=== PATIENT | female | born 1960 | race African-American/Black ===

== ENCOUNTER 2020-03-27 21:09 | Inpatient (IN) | payer OTHER ==
[~2020-03-27] VITALS: Ht 157.5 cm; Wt 71.2 kg
[2020-03-27] MEDS ORDERED: ONDANSETRON HCL 4MG/2ML INJ IV STA (21:36)
[2020-03-27] MEDS ORDERED: SODIUM CHLORIDE 0.9% 1,000 ML IV ONE (21:45)
[2020-03-27] MEDS ORDERED: LEVETIRACETAM 1000MG PREMIX 100 ML IV ONE (21:45)
[2020-03-27 23:46] LABS: BASOPHILS % 0.8 % (0.0-2.0); EOSINOPHILS % 0.1 % (0.0-5.0); LYMPHOCYTES % 14.4 % (20.0-50.0); MEAN CORPUSCULAR HEMOGLOBIN 32.7 pg (28.0-32.0); MEAN CORPUSCULAR VOLUME 93.7 fL (81.0-99.0); MEAN PLATELET VOLUME 8.5 fl (7.4-10.4); MONOCYTES % 4.2 % (2.0-8.0); NEUTROPHILS % 80.5 % (40.0-76.0); PLATELET 160 x1000/uL (130-400); RED BLOOD CELL COUNT 4.26 mill/uL (4.2-5.4); RED CELL DISTRIBUTION WIDTH 12.9 % (11.6-14.6)
[2020-03-27 23:56] LABS: CHLORIDE 88 mEq/L (98-107)
[2020-03-27 23:58] LABS: ETHANOL BLOOD < 10 mg/dL
[2020-03-28] VITALS (7 sets, daily range): BP systolic 121–139; BP diastolic 62–91
[2020-03-28] MEDS ORDERED: CLONIDINE 0.2MG TABLET PO ONE
[2020-03-28 00:15] LABS: CLARITY URINE CLEAR (CLEAR); COLOR URINE YELLOW (YELLOW); KETONES URINE 1+ (NEGATIVE); LEUKOCYTE ESTERASE URINE NEGATIVE (NEGATIVE); NITRITE URINE NEGATIVE (NEGATIVE); OCCULT BLOOD URINE 1+ (NEGATIVE); PROTEIN URINE 2+ (NEGATIVE); SPECIFIC GRAVITY URINE 1.021 (1.005-1.030)
[2020-03-28] MEDS ORDERED: POTASSIUM CHLORIDE INJ 40 MEQ in DEXT 5% WATER 250 ML IV ONE (00:30)
[2020-03-28] MEDS ORDERED: MAGNESIUM 2 G PREMIX 50 ML IV ONE (01:15)
[2020-03-28 01:26] LABS: *AMPHETAMINES SCREEN URINE NEGATIVE (NEGATIVE); *BARBITURATES SCREEN URINE NEGATIVE (NEGATIVE); *BENZODIAZEPINES SCREEN URINE NEGATIVE (NEGATIVE); *COCAINE SCREEN URINE NEGATIVE (NEGATIVE); PHENCYCLIDINE URINE SCREEN NEGATIVE (NEGATIVE)
[2020-03-28 01:35] LABS: OPIATES URINE SCREEN NEGATIVE (NEGATIVE)
[2020-03-28 01:40] LABS: CANNABINOID URINE SCREEN PRESUMTIVE POSITIVE (NEGATIVE); METHADONE URINE SCREEN NEGATIVE (NEGATIVE)
[2020-03-28] MEDS ORDERED: POTASSIUM CHLORIDE 20MEQ TABLET SR PO NR (02:00)
[2020-03-28] MEDS ORDERED: ONDANSETRON HCL 4MG/2ML INJ IV PRN (02:00)
[2020-03-28] MEDS ORDERED: TRAZODONE HCL 50MG TABLET PO PRN (02:00)
[2020-03-28] MEDS ORDERED: MAGNESIUM 2 G PREMIX 50 ML IV NR (02:12)
[2020-03-28] MEDS ORDERED: DEXTROSE 50% WATER 50ML SYRINGE IV PRN (02:15)
[2020-03-28] MEDS ORDERED: SODIUM CHL 0.9% + KCL 20MEQ/L 1,000 ML IV SCH (02:30)
[2020-03-28] MEDS ORDERED: LEVETIRACETAM 500MG PREMIX 100 ML IV SCH (03:00)
[2020-03-28] MEDS: ACETAMINOPHEN 325MG TABLET PO PRN ×3 (04:43→21:44)
[2020-03-28] MEDS ORDERED: INFLUENZA VACCINE 05/PF 0.5 ML VIAL IM ONE (05:45)
[2020-03-28] MEDS ORDERED: PNEUMOCOCCAL 23-VAL P-SAC VAC 0.5 ML IM ONE (05:45)
[2020-03-28] MEDS ORDERED: KCL 10MEQ/50ML PREMIX 50 ML IV SCH (06:00)
[2020-03-28] MEDS ORDERED: INSULIN LISPRO 100 UNITS/ML SUBCUT SCH (08:20)
[2020-03-28] MEDS: LEVETIRACETAM 500MG PREMIX 100 ML IV SCH ×2 (08:46→21:45)
[2020-03-28] MEDS: HEPARIN 5000 UNITS/ML VIAL SUBCUT SCH ×2 (08:47→23:14)
[2020-03-28] MEDS ORDERED: BLOOD SUGAR DIAGNOSTIC STRIP TEST SCH (09:00)
[2020-03-28 09:29] LABS: BASOPHILS % 0.4 % (0.0-2.0); HEMOGLOBIN. 12.8 g/dL (12.0-16.0); LYMPHOCYTES % 11.2 % (20.0-50.0); MEAN CORPUSCULAR HEMOGLOBIN 31.9 pg (28.0-32.0); MEAN CORPUSCULAR VOLUME 94.8 fL (81.0-99.0); MEAN PLATELET VOLUME 8.6 fl (7.4-10.4); MONOCYTES % 8.2 % (2.0-8.0); NEUTROPHILS % 80.2 % (40.0-76.0); PLATELET 132 x1000/uL (130-400); RED BLOOD CELL COUNT 4.01 mill/uL (4.2-5.4); RED CELL DISTRIBUTION WIDTH 12.9 % (11.6-14.6)
[2020-03-28 09:54] LABS: CHLORIDE 101 mEq/L (98-107)
[2020-03-28] MEDS ORDERED: INSULIN GLARGINE UD 100 UNITS/ML SYR SUBCUT SCH (10:00)
[2020-03-28] MEDS ORDERED: POTASSIUM CHLORIDE 20MEQ/PACKET PO SCH (11:30)
[2020-03-28] MEDS ORDERED: MAGNESIUM 4 G PREMIX 100 ML IV SCH (13:00)
[2020-03-28] MEDS ORDERED: PIPERACILLIN/TAZOBACTAM 3.375 G/VIAL IV SCH (14:00)
[2020-03-28] MEDS ORDERED: VANCOMYCIN 1 G PREMIX 200 ML IV SCH (15:00)
[2020-03-28] MEDS: PIPERACILLIN/TAZOBACTAM 3.375 G in DEXT 5% WATER 100 ML IV SCH ×2 (15:35→21:45)
[2020-03-28] MEDS: VANCOMYCIN 1 G PREMIX 200 ML IV SCH (21:45)
[2020-03-29] VITALS: BP 142/88
[2020-03-29] MEDS: PIPERACILLIN/TAZOBACTAM 3.375 G in DEXT 5% WATER 100 ML IV SCH ×2 (03:13→09:37)
[2020-03-29 04:00] VITALS: BP 126/72
[2020-03-29 04:28] LABS: BASOPHILS % 0.5 % (0.0-2.0); EOSINOPHILS % 0.1 % (0.0-5.0); HEMATOCRIT. 38.8 % (36.0-48.0); HEMOGLOBIN. 13.1 g/dL (12.0-16.0); LYMPHOCYTES % 12.8 % (20.0-50.0); MEAN CORPUSCULAR HEMOGLOBIN 31.7 pg (28.0-32.0); MEAN CORPUSCULAR VOLUME 94.1 fL (81.0-99.0); MEAN PLATELET VOLUME 8.8 fl (7.4-10.4); MONOCYTES % 5.9 % (2.0-8.0); NEUTROPHILS % 80.7 % (40.0-76.0); PLATELET 112 x1000/uL (130-400); RED BLOOD CELL COUNT 4.12 mill/uL (4.2-5.4); RED CELL DISTRIBUTION WIDTH 12.8 % (11.6-14.6)
[2020-03-29 04:41] LABS: CHLORIDE 103 mEq/L (98-107)
[2020-03-29 08:00] VITALS: BP 132/75
[2020-03-29] MEDS: VANCOMYCIN 1 G PREMIX 200 ML IV SCH (08:24)
[2020-03-29] MEDS: LEVETIRACETAM 500MG PREMIX 100 ML IV SCH (09:37)
[2020-03-29] MEDS ORDERED: POTASSIUM CHLORIDE 20MEQ TABLET SR PO SCH ×2 (10:00→10:30)
[2020-03-29] MEDS: HEPARIN 5000 UNITS/ML VIAL SUBCUT SCH (10:31)
== END 2020-03-29 13:20 | disposition short-term general hospital (02) | DRG 720 ==
LOC: ER 21:09 → ENRESERV 03-28 03:27 → 5WST 03-28 04:09
PROVIDERS: ADMIT Internal Medicine; ATTEND Internal Medicine
DX: A41.9 Sepsis, unspecified organism (principal); F12.10 Cannabis abuse, uncomplicated; E44.0 Moderate protein-calorie malnutrition; E83.42 Hypomagnesemia; R73.9 Hyperglycemia, unspecified; G40.409 Other generalized epilepsy and epileptic syndromes, not intractable, without status epilepticus; E87.6 Hypokalemia; E87.1 Hypo-osmolality and hyponatremia; R74.01 Elevation of levels of liver transaminase levels; E87.8 Other disorders of electrolyte and fluid balance, not elsewhere classified; R31.9 Hematuria, unspecified; I10 Essential (primary) hypertension; R80.9 Proteinuria, unspecified; R81 Glycosuria; F17.200 Nicotine dependence, unspecified, uncomplicated; Z86.73 Personal history of transient ischemic attack (TIA), and cerebral infarction without residual deficits; Z82.49 Family history of ischemic heart disease and other diseases of the circulatory system; Z91.14 Patient's other noncompliance with medication regimen; Z68.28 Body mass index [BMI] 28.0-28.9, adult; Z71.6 Tobacco abuse counseling; Z98.891 History of uterine scar from previous surgery
CPT/HCPCS: 36415; 71045; 80053; 80061; 80305; 80320; 81003; 83036; 83735; 83880; 85025; 93005; 93306; 99291; J1644; J1953; J2405; J2543; J3370; J3475; J3480; J7030; J7060; G0480

== ENCOUNTER 2020-08-05 01:38 | Inpatient (IN) | payer OTHER ==
[~2020-08-05] VITALS: Ht 156.2 cm; Wt 67.7 kg
[2020-08-05] MEDS ORDERED: ONDANSETRON HCL 4MG/2ML INJ IV STA (02:22)
[2020-08-05] MEDS ORDERED: SODIUM CHLORIDE 0.9% 1,000 ML IV ONE (02:30)
[2020-08-05] MEDS ORDERED: LEVETIRACETAM 500MG PREMIX 100 ML IV ONE (02:30)
[2020-08-05 02:58] LABS: BASOPHILS % 0.4 % (0.0-2.0); CHLORIDE 103 mEq/L (98-107); EOSINOPHILS % 0.7 % (0.0-5.0); HEMATOCRIT. 40.4 % (36.0-48.0); HEMOGLOBIN. 13.3 g/dL (12.0-16.0); LYMPHOCYTES % 59.7 % (20.0-50.0); MEAN CORPUSCULAR HEMOGLOBIN 31.6 pg (28.0-32.0); MEAN PLATELET VOLUME 7.9 fl (7.4-10.4); MONOCYTES % 9.2 % (2.0-8.0); PLATELET 270 x1000/uL (130-400); RED BLOOD CELL COUNT 4.21 mill/uL (4.2-5.4); RED CELL DISTRIBUTION WIDTH 17.4 % (11.6-14.6)
[2020-08-05 03:02] LABS: ETHANOL BLOOD 145 mg/dL
[2020-08-05 03:05] LABS: METHADONE URINE SCREEN NEGATIVE (NEGATIVE); PHENCYCLIDINE URINE SCREEN NEGATIVE (NEGATIVE)
[2020-08-05 03:06] LABS: *AMPHETAMINES SCREEN URINE NEGATIVE (NEGATIVE); *BARBITURATES SCREEN URINE NEGATIVE (NEGATIVE); *BENZODIAZEPINES SCREEN URINE NEGATIVE (NEGATIVE); *COCAINE SCREEN URINE NEGATIVE (NEGATIVE); CANNABINOID URINE SCREEN PRESUMTIVE POSITIVE (NEGATIVE); OPIATES URINE SCREEN NEGATIVE (NEGATIVE)
[2020-08-05] MEDS ORDERED: MIDAZOLAM HCL 2 MG/2 ML VIAL IV ONE (03:45)
[2020-08-05] MEDS ORDERED: DEXTROSE 50% WATER 50ML SYRINGE IV PRN (08:15)
[2020-08-05] MEDS ORDERED: LORAZEPAM 2MG/ML CPJ IV PRN (08:15)
[2020-08-05] MEDS ORDERED: ONDANSETRON HCL 4MG/2ML INJ IV PRN (08:15)
[2020-08-05] MEDS: INSULIN LISPRO 100 UNITS/ML SUBCUT SCH ×4 (08:20→21:18)
[2020-08-05 08:30] VITALS: BP 159/100
[2020-08-05] MEDS: BLOOD SUGAR DIAGNOSTIC STRIP TEST SCH ×4 (08:45→21:05)
[2020-08-05 09:20] VITALS: BP 159/100
[2020-08-05] MEDS: LEVETIRACETAM 500MG TABLET PO SCH ×2 (10:10→21:15)
[2020-08-05] MEDS: THIAMINE HCL 100MG TABLET PO SCH (10:13)
[2020-08-05 12:34] VITALS: BP 147/81
[2020-08-05] MEDS ORDERED: AMLO5TAB4 PO (13:06)
[2020-08-05] MEDS ORDERED: CHOL400D7 PO (13:06)
[2020-08-05] MEDS ORDERED: KEPP500 PO (13:06)
[2020-08-05] MEDS: AMLODIPINE 10MG TABLET PO SCH (13:39)
[2020-08-05] MEDS: CHLORDIAZEPOXIDE 25MG CAPSULE PO SCH ×2 (13:39→21:15)
[2020-08-05 16:32] VITALS: BP 156/92
[2020-08-05 19:41] LABS: CLARITY URINE CLEAR (CLEAR); COLOR URINE YELLOW (YELLOW); KETONES URINE NEGATIVE (NEGATIVE); LEUKOCYTE ESTERASE URINE TRACE (NEGATIVE); NITRITE URINE NEGATIVE (NEGATIVE); OCCULT BLOOD URINE NEGATIVE (NEGATIVE); PH URINE 6.5 (4.5-8.0); PROTEIN URINE NEGATIVE (NEGATIVE); SPECIFIC GRAVITY URINE 1.012 (1.005-1.030); UROBILINOGEN URINE 0.2 E.U./dL (0.2-1.0)
[2020-08-05 20:00] VITALS: BP 139/91
[2020-08-06] VITALS: BP 112/76
[2020-08-06 04:00] VITALS: BP 149/91
[2020-08-06] MEDS: BLOOD SUGAR DIAGNOSTIC STRIP TEST SCH ×2 (06:25→12:28)
[2020-08-06] MEDS: CHLORDIAZEPOXIDE 25MG CAPSULE PO SCH ×2 (06:25→15:04)
[2020-08-06] MEDS: INSULIN LISPRO 100 UNITS/ML SUBCUT SCH ×2 (07:33→12:28)
[2020-08-06 08:00] VITALS: BP 135/85
[2020-08-06] MEDS: THIAMINE HCL 100MG TABLET PO SCH (08:57)
[2020-08-06] MEDS: LEVETIRACETAM 500MG TABLET PO SCH (08:57)
[2020-08-06] MEDS: AMLODIPINE 10MG TABLET PO SCH (08:57)
[2020-08-06 12:00] VITALS: BP 134/73
[2020-08-06] MEDS ORDERED: THIA100T72 PO (13:04)
[2020-08-06] MEDS ORDERED: AMLO10TA80 MT (13:04)
[2020-08-06] MEDS ORDERED: KEPP500 PO (13:04)
[2020-08-06 16:00] VITALS: BP 135/90
[2020-08-06 16:23] VITALS: BP 131/90
== END 2020-08-06 18:32 | disposition home or self-care (01) | DRG 52 ==
LOC: ER 01:38 → 6WST 05:19 → ENRESERV 07:45
PROVIDERS: ADMIT Internal Medicine; ATTEND Internal Medicine
DX: G93.41 Metabolic encephalopathy (principal); G40.909 Epilepsy, unspecified, not intractable, without status epilepticus; F10.129 Alcohol abuse with intoxication, unspecified; F12.90 Cannabis use, unspecified, uncomplicated; I16.0 Hypertensive urgency; Y90.6 Blood alcohol level of 120-199 mg/100 ml; I10 Essential (primary) hypertension; Z86.73 Personal history of transient ischemic attack (TIA), and cerebral infarction without residual deficits; Z71.41 Alcohol abuse counseling and surveillance of alcoholic
CPT/HCPCS: 36415; 71045; 80053; 80305; 80320; 81003; 82962; 83036; 84484; 85025; 93005; 99291; J1815; J1953; J2250; J2405; J7030; G0480

== ENCOUNTER 2021-05-24 09:21 | Inpatient (IN) | payer OTHER ==
[~2021-05-24] VITALS: Ht 170.2 cm; Wt 62.1 kg
[~2021-05-24 09:21] MED LIST: AMLO10TA80 MT; AMLO5TAB4 PO; CHOL400D7 PO; KEPP500 PO; THIA100T72 PO
[2021-05-24 11:32] LABS: HEMATOCRIT. 37.9 % (36.0-48.0); HEMOGLOBIN. 12.5 g/dL (12.0-16.0); MEAN CORPUSCULAR HEMOGLOBIN 32.7 pg (28.0-32.0); MEAN CORPUSCULAR VOLUME 99.1 fL (81.0-99.0); MEAN PLATELET VOLUME 7.9 fl (7.4-10.4); PLATELET 105 x1000/uL (130-400); RED BLOOD CELL COUNT 3.82 mill/uL (4.2-5.4); RED CELL DISTRIBUTION WIDTH 18.9 % (11.6-14.6)
[2021-05-24 11:39] LABS: CHLORIDE 104 mEq/L (98-107)
[2021-05-24 11:42] LABS: ETHANOL BLOOD 128 mg/dL
[2021-05-24] MEDS ORDERED: LEVETIRACETAM 1000MG PREMIX 100 ML IV ONE (12:15)
[2021-05-24 12:23] LABS: PLATELET ESTIMATE DECREASED
[2021-05-24] MEDS ORDERED: LORAZEPAM 2MG/ML CPJ IV ONE (14:00)
[2021-05-24] MEDS ORDERED: CHLORDIAZEPOXIDE 25MG CAPSULE PO ONE (14:00)
[2021-05-24 14:17] LABS: CLARITY URINE CLEAR (CLEAR); COLOR URINE YELLOW (YELLOW); KETONES URINE NEGATIVE (NEGATIVE); LEUKOCYTE ESTERASE URINE NEGATIVE (NEGATIVE); NITRITE URINE NEGATIVE (NEGATIVE); OCCULT BLOOD URINE 2+ (NEGATIVE); PROTEIN URINE NEGATIVE (NEGATIVE); SPECIFIC GRAVITY URINE 1.016 (1.005-1.030)
[2021-05-24 15:09] LABS: METHADONE URINE SCREEN NEGATIVE (NEGATIVE); OPIATES URINE SCREEN NEGATIVE (NEGATIVE)
[2021-05-24 15:10] LABS: *AMPHETAMINES SCREEN URINE NEGATIVE (NEGATIVE); *BARBITURATES SCREEN URINE NEGATIVE (NEGATIVE); *BENZODIAZEPINES SCREEN URINE NEGATIVE (NEGATIVE); *COCAINE SCREEN URINE NEGATIVE (NEGATIVE); CANNABINOID URINE SCREEN PRESUMTIVE POSITIVE (NEGATIVE); PHENCYCLIDINE URINE SCREEN NEGATIVE (NEGATIVE)
[2021-05-24] MEDS ORDERED: LORAZEPAM 2MG/ML CPJ IV NR (17:00)
[2021-05-24 20:00] VITALS: BP 134/89
[2021-05-24 22:00] VITALS: BP 134/89
[2021-05-24] MEDS ORDERED: LORAZEPAM 2MG/ML CPJ IV PRN (22:30)
[2021-05-24] MEDS ORDERED: POTASSIUM CHLORIDE 20MEQ TABLET SR PO NR (22:45)
[2021-05-25] VITALS: BP 148/95
[2021-05-25 04:00] VITALS: BP 123/85
[2021-05-25 06:26] LABS: CHLORIDE 105 mEq/L (98-107)
[2021-05-25 06:48] LABS: BASOPHILS % 0.3 % (0.0-2.0); EOSINOPHILS % 0.1 % (0.0-5.0); HEMATOCRIT. 35.4 % (36.0-48.0); HEMOGLOBIN. 11.7 g/dL (12.0-16.0); MEAN CORPUSCULAR HEMOGLOBIN 32.9 pg (28.0-32.0); MEAN CORPUSCULAR VOLUME 99.8 fL (81.0-99.0); MEAN PLATELET VOLUME 9.1 fl (7.4-10.4); MONOCYTES % 9.5 % (2.0-8.0); NEUTROPHILS % 65.1 % (40.0-76.0); PLATELET 105 x1000/uL (130-400); RED BLOOD CELL COUNT 3.54 mill/uL (4.2-5.4); RED CELL DISTRIBUTION WIDTH 18.8 % (11.6-14.6)
[2021-05-25] MEDS ORDERED: POTASSIUM CHLORIDE INJ 60 MEQ in DEXT 5% WATER 250 ML IV ONE (07:00)
[2021-05-25 08:00] VITALS: BP 138/86
[2021-05-25] MEDS: KCL 20MEQ/100ML PREMIX 100 ML IV SCH ×3 (09:19→15:32)
[2021-05-25] MEDS: ACETAMINOPHEN 325MG TABLET PO PRN ×2 (09:20→15:32)
[2021-05-25] MEDS: THIAMINE HCL 100MG TABLET PO SCH (09:20)
[2021-05-25] MEDS: AMLODIPINE 10MG TABLET PO SCH (09:20)
[2021-05-25] MEDS: LEVETIRACETAM 500MG/5ML CUP PO SCH ×2 (09:20→20:59)
[2021-05-25 12:00] VITALS: BP 139/82
[2021-05-25 16:00] VITALS: BP 127/81
[2021-05-25 20:00] VITALS: BP 129/75
[2021-05-25 20:12] LABS: PHOSPHORUS 2.5 mg/dL (2.5-4.9)
[2021-05-25] MEDS ORDERED: CEFTRIAXONE 1,000 MG in DEXTROSE 5% WATER 50 ML IV SCH (21:00)
[2021-05-25] MEDS ORDERED: MAGNESIUM 2 G PREMIX 50 ML IV ONE (21:30)
[2021-05-26] VITALS: BP 135/81
[2021-05-26 04:00] VITALS: BP 123/85
[2021-05-26 06:26] LABS: CHLORIDE 104 mEq/L (98-107)
[2021-05-26 06:30] LABS: HEMATOCRIT. 32.7 % (36.0-48.0); HEMOGLOBIN. 11.2 g/dL (12.0-16.0); MEAN CORPUSCULAR HEMOGLOBIN 34.3 pg (28.0-32.0); MEAN CORPUSCULAR VOLUME 99.8 fL (81.0-99.0); PLATELET 98 x1000/uL (130-400); RED BLOOD CELL COUNT 3.28 mill/uL (4.2-5.4); RED CELL DISTRIBUTION WIDTH 18.8 % (11.6-14.6)
[2021-05-26] MEDS: ACETAMINOPHEN 325MG TABLET PO PRN (06:48)
[2021-05-26 08:00] VITALS: BP 138/76
[2021-05-26] MEDS ORDERED: POTASSIUM CHLORIDE 20MEQ TABLET SR PO SCH (08:45)
[2021-05-26] MEDS ORDERED: MAGNESIUM 2 G PREMIX 50 ML IV NR (10:00)
[2021-05-26] MEDS: THIAMINE HCL 100MG TABLET PO SCH (10:01)
[2021-05-26] MEDS: LEVETIRACETAM 500MG/5ML CUP PO SCH (10:01)
[2021-05-26] MEDS: AMLODIPINE 10MG TABLET PO SCH (10:02)
[2021-05-26 12:00] VITALS: BP 140/72
[2021-05-26] MEDS ORDERED: KEPP500 PO (14:27)
[2021-05-26] MEDS ORDERED: THIA100T72 PO (14:27)
[2021-05-26] MEDS ORDERED: AMLO10TA80 MT (14:27)
[2021-05-26 15:11] LABS: NUCLEATED RED BLOOD CELLS 1 /100 WBC; PLATELET ESTIMATE DECREASED
[2021-05-26 16:00] VITALS: BP 157/97
[2021-05-26] MEDS ORDERED: LEVO500T89 MT (18:35)
[2021-05-26 18:39] VITALS: BP 145/76
[2021-05-26] MEDS ORDERED: IOHEXOL-300 100 ML BOTTLE ONE (18:58)
== END 2021-05-26 19:48 | disposition home or self-care (01) | DRG 720 ==
LOC: ER 09:27 → 8WST 14:19 → ENRESERV 20:26 → 8WST 05-25 08:08
PROVIDERS: ADMIT Internal Medicine; ATTEND Internal Medicine
PROC: 4A10X4Z Monitoring of Central Nervous Electrical Activity, External Approach (ICD-10-PCS; principal; 2021-05-26)
DX: A41.9 Sepsis, unspecified organism (principal); G92.8 Other toxic encephalopathy; D69.6 Thrombocytopenia, unspecified; E44.1 Mild protein-calorie malnutrition; I11.9 Hypertensive heart disease without heart failure; G40.909 Epilepsy, unspecified, not intractable, without status epilepticus; F17.210 Nicotine dependence, cigarettes, uncomplicated; Y90.6 Blood alcohol level of 120-199 mg/100 ml; F12.10 Cannabis abuse, uncomplicated; F10.929 Alcohol use, unspecified with intoxication, unspecified; K52.9 Noninfective gastroenteritis and colitis, unspecified; E87.6 Hypokalemia; D72.819 Decreased white blood cell count, unspecified; R74.01 Elevation of levels of liver transaminase levels; Z59.02 Unsheltered homelessness; Z68.21 Body mass index [BMI] 21.0-21.9, adult; Z79.899 Other long term (current) drug therapy
CPT/HCPCS: 36415; 71045; 74177; 76700; 80048; 80053; 80305; 80320; 81003; 83735; 84100; 85025; 87493; 93005; 97161; 99285; C1893; J0696; J1953; J2060; J3475; J3480; J7040; J7060; Q9967; G0480

== ENCOUNTER 2021-10-05 11:48 | Inpatient (IN) | payer OTHER ==
[~2021-10-05] VITALS: Ht 154.9 cm; Wt 69.6 kg
[~2021-10-05 11:48] MED LIST changes: -AMLO5TAB4 PO; +LEVO500T90 MT
[2021-10-05] MEDS ORDERED: FOLIC ACID 1 MG, THIAMINE HCL 100 MG, MVI, ADULT NO.1 10 ML in DEXTROSE 5% WATER 1,000 ML IV ONE ×8 (13:30→22:30)
[2021-10-05] MEDS ORDERED: SODIUM CHLORIDE 0.9% 1,000 ML IV ONE ×2 (13:30→14:30)
[2021-10-05 14:04] LABS: BASOPHILS % 1.2 % (0.0-2.0); EOSINOPHILS % 0.1 % (0.0-5.0); HEMATOCRIT. 39.5 % (36.0-48.0); HEMOGLOBIN. 13.2 g/dL (12.0-16.0); LYMPHOCYTES % 52.9 % (20.0-50.0); MEAN CORPUSCULAR HEMOGLOBIN 31.1 pg (28.0-32.0); MEAN CORPUSCULAR VOLUME 93.2 fL (81.0-99.0); MEAN PLATELET VOLUME 7.3 fl (7.4-10.4); MONOCYTES % 7.5 % (2.0-8.0); NEUTROPHILS % 38.3 % (40.0-76.0); PLATELET 222 x1000/uL (130-400); RED BLOOD CELL COUNT 4.23 mill/uL (4.2-5.4); RED CELL DISTRIBUTION WIDTH 16.6 % (11.6-14.6)
[2021-10-05 14:07] LABS: CHLORIDE 105 mEq/L (98-107)
[2021-10-05 14:22] LABS: T4 FREE 0.84 ng/dL (0.76-1.46)
[2021-10-05 14:25] LABS: ETHANOL BLOOD 351 mg/dL
[2021-10-05] MEDS ORDERED: VANCOMYCIN 1G PREMIX 200 ML IV ONE (14:30)
[2021-10-05] MEDS ORDERED: CEFTRIAXONE 1 G PREMIX 50 ML IV ONE (14:30)
[2021-10-05 15:30] LABS: CLARITY URINE CLEAR (CLEAR); COLOR URINE YELLOW (YELLOW); KETONES URINE NEGATIVE (NEGATIVE); LEUKOCYTE ESTERASE URINE NEGATIVE (NEGATIVE); NITRITE URINE NEGATIVE (NEGATIVE); OCCULT BLOOD URINE NEGATIVE (NEGATIVE); PH URINE 5.5 (4.5-8.0); PROTEIN URINE 1+ (NEGATIVE); UROBILINOGEN URINE 0.2 E.U./dL (0.2-1.0)
[2021-10-05 15:40] LABS: *AMPHETAMINES SCREEN URINE NEGATIVE (NEGATIVE); *BARBITURATES SCREEN URINE NEGATIVE (NEGATIVE); *BENZODIAZEPINES SCREEN URINE NEGATIVE (NEGATIVE); *COCAINE SCREEN URINE NEGATIVE (NEGATIVE); CANNABINOID URINE SCREEN PRESUMTIVE POSITIVE (NEGATIVE); METHADONE URINE SCREEN NEGATIVE (NEGATIVE); OPIATES URINE SCREEN NEGATIVE (NEGATIVE); PHENCYCLIDINE URINE SCREEN NEGATIVE (NEGATIVE)
[2021-10-05] MEDS ORDERED: ACETAMINOPHEN 325MG TABLET PO ONE (16:45)
[2021-10-05 18:53] VITALS: BP 100/75
[2021-10-05 19:30] VITALS: BP 152/75
[2021-10-05 20:00] VITALS: BP 152/75
[2021-10-05] MEDS ORDERED: ONDANSETRON HCL 4MG/2ML INJ IV PRN (21:00)
[2021-10-05] MEDS ORDERED: ACETAMINOPHEN 325MG TABLET PO PRN (21:00)
[2021-10-05] MEDS ORDERED: LORAZEPAM 2MG/ML CPJ IV PRN (21:00)
[2021-10-05] MEDS: LEVETIRACETAM 500MG TABLET PO SCH (21:43)
[2021-10-06] VITALS: BP 141/70
[2021-10-06 04:00] VITALS: BP 147/90
[2021-10-06 06:16] LABS: BASOPHILS % 0.7 % (0.0-2.0); EOSINOPHILS % 0.3 % (0.0-5.0); HEMATOCRIT. 37.8 % (36.0-48.0); HEMOGLOBIN. 13.1 g/dL (12.0-16.0); LYMPHOCYTES % 37.6 % (20.0-50.0); MEAN CORPUSCULAR HEMOGLOBIN 31.3 pg (28.0-32.0); MEAN CORPUSCULAR VOLUME 90.5 fL (81.0-99.0); MEAN PLATELET VOLUME 7.3 fl (7.4-10.4); MONOCYTES % 12.7 % (2.0-8.0); NEUTROPHILS % 48.7 % (40.0-76.0); PLATELET 183 x1000/uL (130-400); RED BLOOD CELL COUNT 4.17 mill/uL (4.2-5.4); RED CELL DISTRIBUTION WIDTH 16.3 % (11.6-14.6)
[2021-10-06 06:33] LABS: CHLORIDE 95 mEq/L (98-107)
[2021-10-06 08:00] VITALS: BP 159/89
[2021-10-06] MEDS: MULTIVITAMINS,THER W-MINERALS TABLET PO SCH (09:45)
[2021-10-06] MEDS: PANTOPRAZOLE 40MG DR TABLET PO SCH (09:45)
[2021-10-06] MEDS: AMLODIPINE 10MG TABLET PO SCH (09:46)
[2021-10-06] MEDS: LEVETIRACETAM 500MG TABLET PO SCH ×2 (09:46→21:30)
[2021-10-06] MEDS: POTASSIUM CHLORIDE 20MEQ TABLET SR PO SCH ×3 (11:26→18:07)
[2021-10-06 12:00] VITALS: BP 148/89
[2021-10-06] MEDS: CHLORDIAZEPOXIDE 25MG CAPSULE PO SCH ×2 (14:55→21:30)
[2021-10-06 16:00] VITALS: BP 124/77
[2021-10-06 20:00] VITALS: BP 129/79
[2021-10-07] VITALS: BP 107/73
[2021-10-07 04:00] VITALS: BP 103/67
[2021-10-07] MEDS: CHLORDIAZEPOXIDE 25MG CAPSULE PO SCH ×2 (05:50→13:26)
[2021-10-07] MEDS: PANTOPRAZOLE 40MG DR TABLET PO SCH (06:15)
[2021-10-07 07:10] LABS: BASOPHILS % 1.1 % (0.0-2.0); EOSINOPHILS % 0.7 % (0.0-5.0); HEMATOCRIT. 39.3 % (36.0-48.0); HEMOGLOBIN. 13.2 g/dL (12.0-16.0); LYMPHOCYTES % 39.6 % (20.0-50.0); MEAN CORPUSCULAR VOLUME 92.4 fL (81.0-99.0); MEAN PLATELET VOLUME 7.9 fl (7.4-10.4); MONOCYTES % 14.1 % (2.0-8.0); NEUTROPHILS % 44.5 % (40.0-76.0); PLATELET 174 x1000/uL (130-400); RED BLOOD CELL COUNT 4.26 mill/uL (4.2-5.4); RED CELL DISTRIBUTION WIDTH 16.7 % (11.6-14.6)
[2021-10-07 07:37] LABS: CHLORIDE 101 mEq/L (98-107)
[2021-10-07 08:00] VITALS: BP 120/80
[2021-10-07] MEDS: MULTIVITAMINS,THER W-MINERALS TABLET PO SCH (09:33)
[2021-10-07] MEDS: LEVETIRACETAM 500MG TABLET PO SCH (09:33)
[2021-10-07] MEDS: AMLODIPINE 10MG TABLET PO SCH (09:34)
[2021-10-07 12:00] VITALS: BP 123/69
[2021-10-07 14:18] VITALS: BP 123/69
[2021-10-08] MEDS ORDERED: FAMOTIDINE 20MG TABLET PO SCH (09:00)
== END 2021-10-07 15:10 | disposition home or self-care (01) | DRG 425 ==
LOC: ER 11:48 → 7WST 16:56 → EDBEDREQTM 16:59 → EDBEDREQ 16:59 → ENRESERV 17:18
PROVIDERS: ADMIT Internal Medicine; ATTEND Internal Medicine
DX: E87.6 Hypokalemia (principal); E87.2 Acidosis; F10.129 Alcohol abuse with intoxication, unspecified; F12.90 Cannabis use, unspecified, uncomplicated; G40.909 Epilepsy, unspecified, not intractable, without status epilepticus; I10 Essential (primary) hypertension; F10.139 Alcohol abuse with withdrawal, unspecified; Y90.8 Blood alcohol level of 240 mg/100 ml or more; Z86.73 Personal history of transient ischemic attack (TIA), and cerebral infarction without residual deficits; Z79.899 Other long term (current) drug therapy; Z79.2 Long term (current) use of antibiotics; Z71.41 Alcohol abuse counseling and surveillance of alcoholic
CPT/HCPCS: 36415; 71045; 80048; 80053; 80305; 80307; 80320; 80329; 81003; 82140; 83605; 83735; 83880; 84439; 84443; 84484; 85025; 93005; 99291; J0696; J2405; J3370; J3411; J3490; J7030; J7070; G0480

== ENCOUNTER 2021-10-30 17:37 | Inpatient (IN) | payer OTHER ==
[~2021-10-30] VITALS: Ht 154.9 cm; Wt 72.1 kg
[~2021-10-30 17:37] MED LIST changes: -LEVO500T90 MT
[2021-10-30] MEDS ORDERED: SODIUM CHLORIDE 0.9% 1,000 ML IV ONE ×2 (18:15→19:15)
[2021-10-30] MEDS ORDERED: LEVETIRACETAM 1000MG PREMIX 100 ML IV ONE (18:15)
[2021-10-30 18:27] LABS: BASOPHILS % 0.3 % (0.0-2.0); EOSINOPHILS % 0.1 % (0.0-5.0); HEMATOCRIT. 36.4 % (36.0-48.0); HEMOGLOBIN. 11.7 g/dL (12.0-16.0); LYMPHOCYTES % 20.9 % (20.0-50.0); MEAN CORPUSCULAR HEMOGLOBIN 31.4 pg (28.0-32.0); MEAN CORPUSCULAR VOLUME 97.6 fL (81.0-99.0); MEAN PLATELET VOLUME 8.4 fl (7.4-10.4); MONOCYTES % 8.2 % (2.0-8.0); NEUTROPHILS % 70.5 % (40.0-76.0); PLATELET 131 x1000/uL (130-400); RED BLOOD CELL COUNT 3.73 mill/uL (4.2-5.4); RED CELL DISTRIBUTION WIDTH 18.1 % (11.6-14.6)
[2021-10-30 18:30] LABS: CHLORIDE 102 mEq/L (98-107)
[2021-10-30 18:41] LABS: ETHANOL BLOOD < 10 mg/dL
[2021-10-30] MEDS ORDERED: POTASSIUM CHLORIDE INJ 40 MEQ in DEXT 5% WATER 250 ML IV ONE (19:15)
[2021-10-30] MEDS ORDERED: POTASSIUM CHLORIDE 20MEQ/PACKET PO ONE (19:15)
[2021-10-30] MEDS ORDERED: MAGNESIUM 2 G PREMIX 50 ML IV ONE (19:15)
[2021-10-30] MEDS: KCL 20MEQ/100ML X 2 FOR TOTAL KCL 40MEQ/200ML IV SCH ×2 (19:40→21:10)
[2021-10-30 19:48] LABS: CLARITY URINE CLEAR (CLEAR); COLOR URINE YELLOW (YELLOW); KETONES URINE NEGATIVE (NEGATIVE); LEUKOCYTE ESTERASE URINE NEGATIVE (NEGATIVE); NITRITE URINE NEGATIVE (NEGATIVE); OCCULT BLOOD URINE NEGATIVE (NEGATIVE); PH URINE 5.5 (4.5-8.0); PROTEIN URINE NEGATIVE (NEGATIVE); SPECIFIC GRAVITY URINE 1.007 (1.005-1.030); UROBILINOGEN URINE 0.2 E.U./dL (0.2-1.0)
[2021-10-30 20:27] LABS: *AMPHETAMINES SCREEN URINE NEGATIVE (NEGATIVE); *BARBITURATES SCREEN URINE NEGATIVE (NEGATIVE); *BENZODIAZEPINES SCREEN URINE NEGATIVE (NEGATIVE); *COCAINE SCREEN URINE NEGATIVE (NEGATIVE); CANNABINOID URINE SCREEN PRESUMTIVE POSITIVE (NEGATIVE); METHADONE URINE SCREEN NEGATIVE (NEGATIVE); OPIATES URINE SCREEN NEGATIVE (NEGATIVE); PHENCYCLIDINE URINE SCREEN NEGATIVE (NEGATIVE)
[2021-10-31 02:15] VITALS: BP 144/84
[2021-10-31 03:23] VITALS: BP 144/84
[2021-10-31] MEDS ORDERED: NON FORMULARY PATIENT HOME MED XX SCH (04:15)
[2021-10-31] MEDS ORDERED: ZOLPIDEM TARTRATE 5MG TABLET PO PRN (04:15)
[2021-10-31] MEDS ORDERED: LORAZEPAM 2MG/ML CPJ IV PRN (04:15)
[2021-10-31] MEDS ORDERED: NALOXONE HCL 0.4 MG/ML 1ML VIAL IV PRN (04:30)
[2021-10-31] MEDS: HYDROCODONE/ACETAMINOPHEN 10/325MG TABLET PO PRN ×5 (04:48→21:42)
[2021-10-31 07:12] LABS: CHLORIDE 108 mEq/L (98-107)
[2021-10-31 07:14] LABS: BASOPHILS % 0.2 % (0.0-2.0); EOSINOPHILS % 0.3 % (0.0-5.0); HEMOGLOBIN. 9.9 g/dL (12.0-16.0); LYMPHOCYTES % 18.6 % (20.0-50.0); MEAN CORPUSCULAR HEMOGLOBIN 31.9 pg (28.0-32.0); MEAN CORPUSCULAR VOLUME 93.6 fL (81.0-99.0); MEAN PLATELET VOLUME 8.3 fl (7.4-10.4); MONOCYTES % 13.2 % (2.0-8.0); NEUTROPHILS % 67.7 % (40.0-76.0); PLATELET 118 x1000/uL (130-400); RED CELL DISTRIBUTION WIDTH 17.6 % (11.6-14.6)
[2021-10-31] MEDS ORDERED: POTASSIUM CHLORIDE 20MEQ TABLET SR PO NR ×2 (07:30→13:00)
[2021-10-31] MEDS ORDERED: POTASSIUM CHLORIDE INJ 40 MEQ in DEXT 5% WATER 250 ML IV ONE (07:30)
[2021-10-31 08:00] VITALS: BP 112/68
[2021-10-31] MEDS: CHOLECALCIFEROL (VIT D3) 400 UNIT TABLET PO SCH (08:46)
[2021-10-31] MEDS: LEVETIRACETAM 500MG TABLET PO SCH ×2 (08:46→21:42)
[2021-10-31] MEDS: THIAMINE HCL 100MG TABLET PO SCH (08:46)
[2021-10-31] MEDS: AMLODIPINE 10MG TABLET PO SCH (08:47)
[2021-10-31] MEDS ORDERED: KCL 20MEQ/100ML PREMIX 100 ML IV SCH (09:00)
[2021-10-31 09:42] LABS: PHOSPHORUS 2.6 mg/dL (2.5-4.9)
[2021-10-31 11:52] VITALS: BP 109/75
[2021-10-31] MEDS: CHLORDIAZEPOXIDE 25MG CAPSULE PO SCH ×2 (13:51→21:42)
[2021-10-31] MEDS ORDERED: MAGNESIUM 2 G PREMIX 50 ML IV NR (14:00)
[2021-10-31 16:15] VITALS: BP 110/72
[2021-10-31 20:00] VITALS: BP 121/77
[2021-11-01] VITALS: BP 146/95
[2021-11-01 04:00] VITALS: BP 118/86
[2021-11-01] MEDS: CHLORDIAZEPOXIDE 25MG CAPSULE PO SCH ×3 (05:19→22:22)
[2021-11-01] MEDS: HYDROCODONE/ACETAMINOPHEN 10/325MG TABLET PO PRN ×3 (05:20→22:23)
[2021-11-01 08:00] VITALS: BP 122/80
[2021-11-01] MEDS: THIAMINE HCL 100MG TABLET PO SCH (08:46)
[2021-11-01] MEDS: AMLODIPINE 10MG TABLET PO SCH (08:46)
[2021-11-01] MEDS: LEVETIRACETAM 500MG TABLET PO SCH ×2 (08:46→22:23)
[2021-11-01] MEDS: CHOLECALCIFEROL (VIT D3) 400 UNIT TABLET PO SCH (08:46)
[2021-11-01 12:00] VITALS: BP 107/65
[2021-11-01 16:00] VITALS: BP 137/96
[2021-11-01 20:00] VITALS: BP 148/131
[2021-11-02] VITALS: BP 112/72
[2021-11-02 04:00] VITALS: BP 124/80
[2021-11-02] MEDS: HYDROCODONE/ACETAMINOPHEN 10/325MG TABLET PO PRN ×4 (05:41→21:37)
[2021-11-02] MEDS: CHLORDIAZEPOXIDE 25MG CAPSULE PO SCH ×3 (05:41→21:37)
[2021-11-02 08:00] VITALS: BP 122/57
[2021-11-02] MEDS: COLCHICINE 0.6MG TABLET PO SCH (09:32)
[2021-11-02] MEDS: LEVETIRACETAM 500MG TABLET PO SCH ×2 (09:32→21:38)
[2021-11-02] MEDS: AMLODIPINE 10MG TABLET PO SCH (09:33)
[2021-11-02] MEDS: THIAMINE HCL 100MG TABLET PO SCH (09:33)
[2021-11-02] MEDS: CHOLECALCIFEROL (VIT D3) 400 UNIT TABLET PO SCH (09:33)
[2021-11-02 12:00] VITALS: BP 102/62
[2021-11-02 16:00] VITALS: BP 114/60
[2021-11-02 18:45] LABS: CHLORIDE 101 mEq/L (98-107)
[2021-11-02 20:00] VITALS: BP 101/60
[2021-11-03] VITALS: BP 114/67
[2021-11-03 04:00] VITALS: BP 119/70
[2021-11-03] MEDS: CHLORDIAZEPOXIDE 25MG CAPSULE PO SCH ×3 (06:04→20:59)
[2021-11-03] MEDS: HYDROCODONE/ACETAMINOPHEN 10/325MG TABLET PO PRN ×3 (06:04→17:56)
[2021-11-03 08:00] VITALS: BP 116/75
[2021-11-03] MEDS: CHOLECALCIFEROL (VIT D3) 400 UNIT TABLET PO SCH (08:31)
[2021-11-03] MEDS: COLCHICINE 0.6MG TABLET PO SCH (08:31)
[2021-11-03] MEDS: AMLODIPINE 10MG TABLET PO SCH (08:31)
[2021-11-03] MEDS: LEVETIRACETAM 500MG TABLET PO SCH ×2 (08:31→20:59)
[2021-11-03] MEDS: THIAMINE HCL 100MG TABLET PO SCH (08:31)
[2021-11-03 12:00] VITALS: BP 117/69
[2021-11-03 16:00] VITALS: BP 98/59
[2021-11-03 20:00] VITALS: BP 143/91
[2021-11-04] VITALS: BP 105/61
[2021-11-04 04:00] VITALS: BP 129/84
[2021-11-04] MEDS: CHLORDIAZEPOXIDE 25MG CAPSULE PO SCH ×3 (06:03→21:06)
[2021-11-04] MEDS: HYDROCODONE/ACETAMINOPHEN 10/325MG TABLET PO PRN ×3 (06:03→21:06)
[2021-11-04 07:01] LABS: CHLORIDE 103 mEq/L (98-107)
[2021-11-04 07:16] LABS: HEMOGLOBIN. 9.3 g/dL (12.0-16.0); MEAN CORPUSCULAR HEMOGLOBIN 32.2 pg (28.0-32.0); MEAN CORPUSCULAR VOLUME 97.2 fL (81.0-99.0); MEAN PLATELET VOLUME 7.8 fl (7.4-10.4); PLATELET 228 x1000/uL (130-400); RED BLOOD CELL COUNT 2.88 mill/uL (4.2-5.4); RED CELL DISTRIBUTION WIDTH 18.1 % (11.6-14.6)
[2021-11-04 08:00] VITALS: BP 114/59
[2021-11-04] MEDS: COLCHICINE 0.6MG TABLET PO SCH (09:01)
[2021-11-04] MEDS: CHOLECALCIFEROL (VIT D3) 400 UNIT TABLET PO SCH (09:01)
[2021-11-04] MEDS: LEVETIRACETAM 500MG TABLET PO SCH ×2 (09:02→21:06)
[2021-11-04] MEDS: THIAMINE HCL 100MG TABLET PO SCH (09:02)
[2021-11-04] MEDS: AMLODIPINE 10MG TABLET PO SCH (09:12)
[2021-11-04 12:00] VITALS: BP 108/64
[2021-11-04 16:00] VITALS: BP 113/60
[2021-11-04 20:00] VITALS: BP 123/56
[2021-11-05] VITALS: BP 115/62
[2021-11-05 04:00] VITALS: BP 122/68
[2021-11-05] MEDS: CHLORDIAZEPOXIDE 25MG CAPSULE PO SCH ×2 (05:15→13:56)
[2021-11-05] MEDS: HYDROCODONE/ACETAMINOPHEN 10/325MG TABLET PO PRN ×2 (05:23→11:38)
[2021-11-05 07:38] LABS: PLATELET ESTIMATE NORMAL
[2021-11-05 07:52] LABS: HEMATOCRIT. 28.5 % (36.0-48.0); HEMOGLOBIN. 9.2 g/dL (12.0-16.0); MEAN CORPUSCULAR HEMOGLOBIN 31.1 pg (28.0-32.0); MEAN CORPUSCULAR VOLUME 95.9 fL (81.0-99.0); MEAN PLATELET VOLUME 7.5 fl (7.4-10.4); PLATELET 327 x1000/uL (130-400); RED BLOOD CELL COUNT 2.97 mill/uL (4.2-5.4); RED CELL DISTRIBUTION WIDTH 18.6 % (11.6-14.6)
[2021-11-05 08:07] LABS: CHLORIDE 102 mEq/L (98-107)
[2021-11-05] MEDS: CHOLECALCIFEROL (VIT D3) 400 UNIT TABLET PO SCH (08:40)
[2021-11-05] MEDS: AMLODIPINE 10MG TABLET PO SCH (08:40)
[2021-11-05] MEDS: LEVETIRACETAM 500MG TABLET PO SCH ×2 (08:40→21:34)
[2021-11-05] MEDS: THIAMINE HCL 100MG TABLET PO SCH (08:40)
[2021-11-05] MEDS: COLCHICINE 0.6MG TABLET PO SCH (08:41)
[2021-11-05 18:23] LABS: PLATELET ESTIMATE NORMAL
[2021-11-06] MEDS: LEVETIRACETAM 500MG TABLET PO SCH (09:47)
[2021-11-06] MEDS: THIAMINE HCL 100MG TABLET PO SCH (09:48)
[2021-11-06] MEDS: COLCHICINE 0.6MG TABLET PO SCH (09:48)
[2021-11-06] MEDS: AMLODIPINE 10MG TABLET PO SCH (09:48)
[2021-11-06] MEDS: CHOLECALCIFEROL (VIT D3) 400 UNIT TABLET PO SCH (09:48)
[2021-11-06 12:00] VITALS: BP 105/63
[2021-11-06] MEDS ORDERED: NALOXONE HCL 0.4MG/ML VIAL IV PRN (12:00)
[2021-11-06] MEDS ORDERED: MAGNESIUM OXIDE 400MG TABLET PO SCH (12:00)
[2021-11-06] MEDS: HYDROCODONE/ACETAMINOPHEN 10/325MG TABLET PO PRN (12:11)
[2021-11-06 12:48] VITALS: BP 103/103
[2021-11-06 16:00] VITALS: BP 95/69
== END 2021-11-06 17:58 | DRG 53 ==
LOC: ER 17:37 → 6WST 21:35 → ENRESERV 10-31 00:11 → 6WST 10-31 02:54 → 6EST 11-04 13:49
PROVIDERS: ADMIT Internal Medicine; ATTEND Internal Medicine
DX: G40.909 Epilepsy, unspecified, not intractable, without status epilepticus (principal); E44.1 Mild protein-calorie malnutrition; E72.20 Disorder of urea cycle metabolism, unspecified; F10.239 Alcohol dependence with withdrawal, unspecified; D64.9 Anemia, unspecified; E83.42 Hypomagnesemia; Z20.822 Contact with and (suspected) exposure to COVID-19; E87.6 Hypokalemia; I10 Essential (primary) hypertension; Z68.30 Body mass index [BMI] 30.0-30.9, adult; F12.90 Cannabis use, unspecified, uncomplicated; Z79.899 Other long term (current) drug therapy; Z71.41 Alcohol abuse counseling and surveillance of alcoholic
CPT/HCPCS: 36415; 71045; 73620; 80048; 80053; 80305; 80320; 81003; 82140; 83605; 83735; 84100; 84132; 84484; 84550; 85025; 87426; 93005; 93923; 97110; 97162; 97530; 99291; J1953; J3475; J3480; J7030; J7060; G0480